=== PATIENT | female | born 1935 | race Caucasian/White ===

== ENCOUNTER 2018-03-28 08:27 | Outpatient (CLI) | payer MEDICARE ==
--- NOTE | 2018-03-28 15:54 | NM ---
NUCLEAR MEDICINE BRAIN IMAGING: Date: 03/28/18 HISTORY: Other specified forms of tremor. TECHNIQUE: A DaTscan with axial tomographic images of the brain was obtained 3 hours following the intravenous a dministration of 4.6 mCi Iodine-123 Ioflupane. The patient was pretreated with 130 mg of potassium io dide 1 hour prior to the injection. FINDINGS: There is loss of symmetric uptake in the striata bilaterally. IMPRESSION: Parkinsonian syndrome. POS: [facility]
== END 2018-03-28 08:28 | disposition home or self-care (01) ==
LOC: NM 08:27
PROVIDERS: ATTEND Psychiatry & Neurology Neurology
DX: G25.2 Other specified forms of tremor (principal); G20 Parkinson's disease
CPT/HCPCS: 78607; A9584

== ENCOUNTER 2018-06-11 13:51 | Outpatient (CLI) | payer MEDICARE ==
--- NOTE | 2018-06-11 15:03 | CT ---
CT HEAD WITHOUT CONTRAST: HISTORY: Follow up subdural hematoma. The patient fell in April. COMPARISON: None. FINDINGS: No parenchymal hemorrhage or extraaxial hematoma. No midline shift. Basilar cisterns are patent. A ge appropriate atrophy. Cortical bauer white matter differentiation is preserved. No evidence of hydrocephalus. White matter hypodensities due to chronic small vessel ischemic change. The calvarium is intact. Adequate aeration of the sinuses and mastoid air cells. There is cavernous carotid atherosclerosis. There is an increased density along the posterior right nasal cavity. The possibility of a nasal mas s cannot be excluded. Direct visualization is recommended. IMPRESSION: 1. No evidence of intracranial hemorrhage. 2. Possible mass in the posterior right nasal cavity. Direct visualization is recommended. CODE T POS: [facility]
== END 2018-06-11 13:52 | disposition home or self-care (01) ==
LOC: TBSIIMAG 13:51
PROVIDERS: ATTEND Neurological Surgery
DX: S06.5X9A Traumatic subdural hemorrhage with loss of consciousness of unspecified duration, initial encounter (principal)
CPT/HCPCS: 70450

== ENCOUNTER 2019-02-17 15:45 | Inpatient (IN) | payer MEDICARE ==
--- NOTE | 2019-02-17 16:22 | RAD ---
Frontal radiograph chest: 02/17/2019 COMPARISON: None available HISTORY: Syncope FINDINGS: There is prominence of the left hilum which suggest vascular prominence, likely on the basi s of a dilated pulmonary arterial trunk suggestive of pulmonary arterial hypertension. There is mild increased linear interstitial density. No focal consolidation or alveolar edema. Loop recorder o verlies the left lung base. IMPRESSION: Prominent pulmonary arterial trunk. No focal consolidation or alveolar edema.
[2019-02-17 16:35] LABS: #Eosinphils 0.2 thou/uL (0.0-0.7); #Lymphocytes 0.9 thou/uL (1.20-3.40); #Monocytes 0.7 thou/uL (0.11-0.59); #Neutrophils 10.6 thou/uL (1.40-6.50); %Basophils 0.2 % (0.0-1.0); %Eosinophils 1.6 % (0.0-10.0); %Lymphocytes 7.3 % (21.0-51.0); %Monocytes 5.2 % (0.0-10.0); %Neutrophils 85.7 % (42.0-75.0); Hemoglobin 8.5 g/dL (12.0-16.0); Mean Corpuscular HGB CONC 33.8 g/dL (32.0-36.0); Mean Corpuscular Hemoglobin 32.6 pg (27.0-31.0); Mean Corpuscular Volume 96.5 fL (78.0-98.0); Platelet Count 318 thou/uL (130-400); RBC Distribution Width 13.5 % (11.5-14.5); Red Blood Cell (RBC) Count 2.61 mill/uL (4.20-5.40); White Blood Cell (WBC) Count 12.3 thou/uL (4.8-10.8)
[2019-02-17 17:23] LABS: ALT (SGPT) Less than 7 U/L (8-55); AST (SGOT) 13 U/L (5-34); Albumin 3.2 g/dL (3.4-4.8); Alkaline Phosphatase 93 U/L (40-110); Anion Gap 9 mmol/L (10-20); BUN (Urea Nitrogen) 21 mg/dL (9.8-20.1); Bilirubin, Total 1.8 mg/dL (0.2-1.2); Calc. Creatinine Clearance 0 mL/min (70-130); Calcium 8.8 mg/dL (7.8-10.44); Carbon Dioxide 28 mmol/L (23-31); Chloride 93 mmol/L (98-107); Estimated GFR-MDRD 66; Globulin 2.2 g/dL (2.4-3.5); Glucose 110 mg/dL (83-110); Magnesium 1.9 mg/dL (1.6-2.6); Potassium 4.7 mmol/L (3.5-5.1); Protein, Total 5.4 g/dL (6.0-8.3); Sodium 125 mmol/L (136-145)
[2019-02-17 19:28] LABS: Bilirubin Negative (Negative); Blood, Urine Negative (Negative); Clarity Clear (Clear); Glucose, Urine (Dipstick) Normal (Negative); Leukocyte Negative Leu/uL (Negative); Nitrite Negative (Negative); Protein, Urine (Dipstick) 10 mg/dL (Neg-Trace)
--- NOTE | 2019-02-17 19:30 | CT ---
CT HEAD WITHOUT CONTRAST: HISTORY: Altered mental status. COMPARISON: 06/11/2018 FINDINGS: Again noted is decreased attenuation in the periventricular white matter, which is nonspecific but ag ain likely reflective of chronic small vessel ischemic changes. There is no evidence of an acute taina ical infarction, hemorrhage, mass effect or midline shift. Subtle low density areas are seen in the p ons bilaterally, which could be reflective of chronic small vessel ischemic changes. MRI would be a m ore sensitive study of choice to evaluate for a more acute lacunar infarction in the florentin. There is cerebral and cerebellar volume loss again noted. Again noted is the low density mass like structures with associated increased density seen within the posterior right nasal cavity and extending into the right nasopharynx. This was also present on the prior exam. Prominent vascular calcifications are seen in the carotid siphons and involving the distal vertebral arteries. No other interval change. IMPRESSION: 1. Chronic small vessel ischemic changes and cerebral volume loss. There are low density areas seen w ithin the florentin bilaterally which could be related to chronic small vessel ischemic changes as well. H owever, a more acute lacunar infarction would be difficult to exclude based on this examination. MRI would be a more sensitive study of choice. No acute cortical infarction or hemorrhage is seen. 2. As described on the study of 06/11/2018, there is suggestion of a mass in the posterior right nasa l cavity and extending into the nasopharynx. Again direct visualization is recommended if this has no t been performed. POS: OFF
--- NOTE | 2019-02-17 19:50 | CT ---
CT ANGIOGRAM THORAX WITH IV CONTRAST AND 3D RECONSTRUCTIONS: HISTORY: Syncopal episode. COMPARISON: None. FINDINGS: The main pulmonary artery and the proximal aspect of the left main pulmonary artery are enlarged. The main pulmonary artery measures 5.7 cm in diameter. The right pulmonary artery is not enlarged, and t he remainder of the left pulmonary artery is not enlarged. There are no filling defects seen to sugge st a pulmonary embolus involving the central or segmental pulmonary arteries but there is limited opa cification of the subsegmental pulmonary arteries. Dense and significant vascular calcifications are seen in the coronary arteries as well as involving the thoracic aorta. The thoracic aorta is normal in caliber, and no aortic dissection is visualized. Small bilateral pleural effusions and associated atelectasis are present. There are linear areas of scarring scattered within the lungs bilaterally. Calcified mediastinal lymph nodes are seen related to prior granulomatous disease. Gallbladder calculi are visualized. The remainder of the visualized upper abdomen does have a normal CT appearance. There is osteopenia with multilevel degenerative changes seen throughout the spine. IMPRESSION: 1. 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 The dilatation extends into t he proximal left main pulmonary artery, but the remainder of the left pulmonary artery as well as the right pulmonary artery are more normal in caliber. 2. No CT evidence of a pulmonary embolus involving the central or segmental pulmonary arteries. There is limited evaluation of the subsegmental pulmonary arteries. 3. Significant vascular calcifications. 4. Small bilateral pleural effusions. 5. Cholelithiasis. POS: OFF
[2019-02-17] MEDS ORDERED: Aspirin Chewable 81 MG TAB ONE (20:22)
[2019-02-17 21:05] LABS: Troponin I Less than 0.010 ng/mL (< 0.028)
[2019-02-18 00:07] LABS: Troponin I 0.015 ng/mL (< 0.028)
--- NOTE | 2019-02-18 03:58 | HP ---
CHIEF COMPLAINT: Syncope. HISTORY OF PRESENT ILLNESS: The patient is an 83-year-old female, who recently had right hip replaced at the [facility] and was transferred to a [place] for rehabilitation. The patient's daughter, who is at the bedside stated that the patient presents today for a syncopal episode. The patient's daughter also states that while she was at the [facility] given her irregularity of her heart rate, she underwent a Holter monitor placed, which was done by Dr. Henry. She also was noted to have hyponatremia and at this time, she was found to be on hydrochlorothiazide, so her primary care doctor discontinued the hydrochlorothiazide and has been keeping an eye on her hyponatremia. The patient also has a history of Parkinson disease and due to her unsteady gait and her recent hip surgery, she was admitted to the [place] [facility] for further evaluation. The patient's daughter, who is at the bedside stated that today the patient was sitting in therapy today at the facility, where she had a sync[facility] episode at [facility]. At this time, she was found to have her eyes rolled back and also had some shortness of breath. The patient's heart monitor was checked by the customer engagement representative, who stated that there was no abnormalities noted, however, recommended to follow up or bring her into the ER for further evaluation. PAST MEDICAL HISTORY: She has a history of CAD. She has a history of hypertension. She has a history of Parkinson's. She has a history of hyperlipidemia. PAST SURGICAL HISTORY: She has right hip replacement. She has had left knee pin inserted. She has cardiac stent. She also has carotid endarterectomy, I am unaware if it is on the right or the left or both. The daughter could not remember. She has also had some sort of bleeding in her brain in the past. ALLERGIES: NO KNOWN DRUG ALLERGIES. MEDICATIONS: She is on: 1. Carbidopa levodopa one tab three times a day. 2. She is on clopidogrel 75 mg daily. 3. Doxazosin 4 mg daily. 4. She is on aspirin 325 daily. 5. Metoprolol 25 mg at bedtime. 6. Atorvastatin 20 mg at bedtime. 7. Amantadine 100 mg twice a day. 8. Potassium 20 mEq daily. REVIEW OF SYSTEMS: All negative except for the ones mentioned above in the HPI. FAMILY HISTORY: No history of heart disease or stroke. SOCIAL HISTORY: She denies any alcohol use, drug use, or smoking history. She is a full code. She lives with her daughter, but currently is in the [place]. LABORATORY DATA: Laboratory results are as of the following. She did have CTA and CT brain. CTA did not indicate any pulmonary embolism, just indicated aneurysmal dilation in the main pulmonary artery about 5.7 cm. No evidence of thrombus was noted. Also, she had a CT brain, which indicated chronic small-vessel ischemia. There is a low-density area seen within the florentin bilaterally, which could be related to the chronic small-vessel ischemic changes as well or more lacunar infarcts would be difficult to exclude. Also, there was a mention that she does have mass in the posterior right nasal cavity and extending into the nasopharyngeal. Laboratory results are as of the following; WBCs of 12.3, hemoglobin of 8.5, hematocrit of 25.2, platelets of 318. Chemistry; sodium 125, potassium of 4.7, BUN of 21, creatinine 0.82. Her osmolality is 274. Her total bilirubin was 1.8. Troponins x2 were negative. BNP is normal. TSH is normal. ASSESSMENT AND PLAN: The patient is an 83-year-old female, who presents to the hospital with syncopal episode. 1. Syncope. It could be possible vasovagal versus multifactorial in terms of cardiac versus infectious etiology. The patient's daughter who is at the bedside states that she has had multiple urinary tract infections in the past. However, her urine this time was negative. Also, the patient's daughter stated that over the weekend, she has been sleeping quite a bit. With this, CT head findings possibly could be that she had a stroke, however, it is unclear. We will get an MRI of the brain in the morning. The patient does have a Holter monitor given her abnormalities in her EKG while she was in the hospital at the [facility]. The morning doctor will have to probably call Dr. Henry to see if there is any abnormalities that was noted on the Holter monitor. However, per the ER note, it stated that there was no abnormality that was noted. Her syncope could possibly also be related secondary to even hypotension. However, her blood pressure has been stable. According to the patient's daughter, she has not been eating very much. 2. Hyponatremia, unclear etiology. She initially was on hydrochlorothiazide which has been discontinued. She continues to be hyponatremic. We will check urine osmolality and urine sodium. We will continue to monitor. TSH appears to be normal. This could be most likely secondary to low solute, hyponatremia, however, other etiologies is also possible. She is not on any SSRIs that could cause her to have hyponatremia. 3. Hypertension. I will continue her home medications. 4. Coronary artery disease. We will continue her aspirin and her Plavix and statin. 5. Right hip fracture recently, status post replacement. I will get PT and OT involved in this patient's care and also, we will start her on some deep venous thrombosis prophylaxis with Lovenox. 6. 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 According to the patient's daughter, she had this investigated in 2016 and she was given the option for removal, however, she declined it. I will get an MRI brain. We will consult Neurology. We will also get an echocardiogram and we will also get carotid Dopplers since according to the patient's daughter, her customer engagement representative has been keeping a close eye on her carotid. She has had stents or some sort of carotid surgery in the past. Job ID: [id number]
[2019-02-18 04:36] LABS: Cardiac Risk 3.9 (Less than 4.5)
--- NOTE | 2019-02-18 08:39 | ULT ---
CAROTID ULTRASOUND WITH ADAME SCALE AND DOPPLER DUPLEX COLOR FLOW IMAGING SPECTRAL ANALYSIS PERFORMED: DATE: 02/18/19 CLINICAL INDICATION: Stroke. FINDINGS: There is moderate to severe scattered atherosclerotic calcification of the carotid arteries. PEAK SYSTOLIC VELOCITY (CM/S): Right CCA 80 Left CCA 73 Right ICA 93 Left ICA 214 The left vertebral flow-void is not discerned. Antegrade flow is documented within the right vertebra l artery. IMPRESSION: 1. Moderate (50-69%) stenosis of the left ICA. 2. No hemodynamically significant stenosis of the right internal carotid artery. 3. Indeterminate flow direction of the left vertebral artery, which is not visualized on this exam. POS: [facility]
[2019-02-18] MEDS ORDERED: Aspirin 81 mg Enteric Coated Tablet PO SCH (09:00)
[2019-02-18] MEDS ORDERED: Clopidogrel Bisulfate 75 MG TAB ONE (09:17)
[2019-02-18] MEDS ORDERED: Aspirin Chewable 81 MG TAB ONE (09:17)
[2019-02-18] MEDS: Clopidogrel Bisulfate 75 MG TAB PO SCH (09:21)
--- NOTE | 2019-02-18 10:09 | MRI ---
Brain MRI without contrast: 02/18/2019 COMPARISON: None HISTORY: Generalized weakness, assess for acute infarction TECHNIQUE: Multiplanar multisequence MR imaging of the brain obtained without contrast FINDINGS: There is a definite focus of acute infarction within the deep white matter on the right ant eriorly measuring 6 mm. There are a few additional foci of increased signal intensity on the diffusion weighted imaging within the deep white matter on the left. This includes a focus of increas ed signal intensity measuring 4 mm on axial image 44. This may represent an additional small area of acute infarction or could potentially represent T2 shine through on the basis of chronic small ves elza disease. There is a similar vague area of increased signal intensity within the superior aspect of the deep white matter on the left on axial diffusion image 47 measuring 3 mm. No evidence for acute infarction is seen involving the brainstem or the cerebellum. The axial gradien t echo imaging demonstrates no evidence for intracranial hemorrhage. There is extensive periventricular, deep, and subcortical white matter T2 and FLAIR hyperintensity, c onsistent with significant small vessel disease. There is significant diffuse cerebral volume loss as well. Regional bone marrow signal intensity appears within normal limits. The imaged paranasal sinuses/mastoid air cells appear grossly unremarkable. Arterial flow voids at th e axial level of the skull base appear grossly unremarkable on the T2-weighted imaging. IMPRESSION: Definite focus of acute infarction within the deep white matter on the right. Additional foci of increased signal intensity on the diffusion weighted sequence on the left as described above.
[2019-02-18 12:42] LABS: Anion Gap 13 mmol/L (10-20); BUN (Urea Nitrogen) 24 mg/dL (9.8-20.1); Calc. Creatinine Clearance 0 mL/min (70-130); Calcium 8.6 mg/dL (7.8-10.44); Carbon Dioxide 25 mmol/L (23-31); Chloride 96 mmol/L (98-107); Estimated GFR-MDRD 64; Glucose 113 mg/dL (83-110); Potassium 4.3 mmol/L (3.5-5.1); Sodium 130 mmol/L (136-145)
[2019-02-18 16:45] VITALS: BMI 30.1
[2019-02-18] MEDS: Atorvastatin Calcium 20 MG TAB PO SCH (20:32)
[2019-02-18] MEDS ORDERED: Atorvastatin Calcium 40 MG TAB PO SCH (21:00)
[2019-02-19 04:32] LABS: #Eosinphils 0.2 thou/uL (0.0-0.7); #Lymphocytes 1.2 thou/uL (1.20-3.40); #Monocytes 0.7 thou/uL (0.11-0.59); %Basophils 0.5 % (0.0-1.0); %Eosinophils 1.6 % (0.0-10.0); %Monocytes 7.2 % (0.0-10.0); %Neutrophils 78.8 % (42.0-75.0); Hemoglobin 7.7 g/dL (12.0-16.0); Mean Corpuscular HGB CONC 34.3 g/dL (32.0-36.0); Mean Corpuscular Hemoglobin 33.2 pg (27.0-31.0); Mean Corpuscular Volume 96.8 fL (78.0-98.0); Platelet Count 315 thou/uL (130-400); RBC Distribution Width 13.8 % (11.5-14.5); Red Blood Cell (RBC) Count 2.32 mill/uL (4.20-5.40); White Blood Cell (WBC) Count 10.1 thou/uL (4.8-10.8)
[2019-02-19 04:46] LABS: Anion Gap 8 mmol/L (10-20); BUN (Urea Nitrogen) 14 mg/dL (9.8-20.1); Calc. Creatinine Clearance 82 mL/min (70-130); Calcium 8.6 mg/dL (7.8-10.44); Carbon Dioxide 30 mmol/L (23-31); Chloride 96 mmol/L (98-107); Estimated GFR-MDRD 87; Glucose 106 mg/dL (83-110); Sodium 130 mmol/L (136-145)
[2019-02-19] MEDS ORDERED: hydrALAZINE 20 MG/ML VIAL SLOW IVP PRN (04:51)
[2019-02-19] MEDS ORDERED: Clopidogrel Bisulfate 75 MG TAB PO SCH (09:00)
[2019-02-19] MEDS: Aspirin 81 mg Enteric Coated Tablet PO SCH (09:08)
[2019-02-19] MEDS: Clopidogrel Bisulfate 75 MG TAB PO SCH (09:08)
--- NOTE | 2019-02-19 11:28 | PDOC.HOSPP ---
- Subjective Encounter Date: 02/19/19 Encounter Time: 11:28 Subjective: Doing well, wishes to go back to her rehab when sodium imroves. - Objective Vital Signs & Weight: Vital Signs (12 hours) Temp Pulse Resp BP BP Pulse Ox 02/19/19 09:08 192/88 H 02/19/19 07:50 96 02/19/19 07:44 98.0 F 95 18 192/88 H 96 02/19/19 04:00 97.9 F 91 20 190/78 H 92 L 02/19/19 00:00 99.1 F 86 16 157/72 H 93 L Weight Weight 181 lb 3.2 oz I&O: 02/18/19 02/19/19 02/20/19 06:59 06:59 06:59 Intake Total 460 300 Output Total 200 Balance 260 300 Result Diagrams: 02/19/19 04:18 02/19/19 04:18 Hospitalist ROS - Medication Medications: Active Medications Generic Name Dose Route Start Last Admin Trade Name Freq PRN Reason Stop Dose Admin Aspirin 81 mg 02/19/19 09:00 02/19/19 09:08 Ecotrin PO 81 mg DAILY MONSE Administration Atorvastatin Calcium 20 mg 02/18/19 21:00 02/18/19 20:32 Lipitor PO 20 mg HS MONSE Administration Clopidogrel Bisulfate 75 mg 02/18/19 09:00 02/19/19 09:08 Plavix PO 75 mg DAILY MONSE Administration Enalapril Maleate 20 mg 02/19/19 09:00 02/19/19 09:08 Vasotec PO 20 mg DAILY MONSE Administration Metoprolol Succinate 25 mg 02/19/19 09:00 02/19/19 09:08 Toprol Xl PO 25 mg DAILY MONSE Administration - Exam General Appearance: NAD, awake alert, ill appearing Eye: PERRL, anicteric sclera, scleral icterus ENT: normocephalic atraumatic, no oropharyngeal lesions, moist mucosa, dry oral mucosa Neck: supple, symmetric, no JVD, no thyromegaly, no lymphadenopathy, no carotid bruit, JVD Heart: RRR, no murmur, no gallops, no rubs, normal peripheral pulses, irregular , diminshed peripheral pulses, murmur present, II/IV, III/IV Respiratory: CTAB, no wheezes, no rales, no ronchi, normal chest expansion, no tachypnea, normal percussion, rales, rhonchi, tachypneic, wheezes Gastrointestinal: soft, non-tender, non-distended, normal bowel sounds, no palpable masses, no hepatomegaly, no splenomegaly, no bruit, no guarding, no rigidity, tender to palpation, distended, diminished bowl sounds, voluntary guarding Extremities: no cyanosis, no clubbing, no edema, 1+ LE edema, 2+ LE edema, clubbing Skin: normal turgor, no lesions, no rashes, tenting Hosp A/P (1) CVA (cerebral vascular accident) Code(s): I63.9 - CEREBRAL INFARCTION, UNSPECIFIED Status: Acute (2) Hyponatremia Code(s): E87.1 - HYPO-OSMOLALITY AND HYPONATREMIA Status: Acute - Plan plan discussed w/ family, PT/OT, social media executive, DVT proph w/lovenox (D/c planning to Rehab when the PT and neurologist clears and sodium imroves.)
[2019-02-19 11:53] LABS: #Eosinphils 0.1 thou/uL (0.0-0.7); #Lymphocytes 1.2 thou/uL (1.20-3.40); #Monocytes 0.6 thou/uL (0.11-0.59); #Neutrophils 8.8 thou/uL (1.40-6.50); %Basophils 0.2 % (0.0-1.0); %Eosinophils 1.3 % (0.0-10.0); %Lymphocytes 11.2 % (21.0-51.0); %Monocytes 5.9 % (0.0-10.0); %Neutrophils 81.4 % (42.0-75.0); Hemoglobin 7.6 g/dL (12.0-16.0); Mean Corpuscular HGB CONC 32.9 g/dL (32.0-36.0); Mean Corpuscular Volume 97.3 fL (78.0-98.0); Mean Platelet Volume 5.9 fL (7.4-10.4); Platelet Count 306 thou/uL (130-400); RBC Distribution Width 13.8 % (11.5-14.5); Red Blood Cell (RBC) Count 2.37 mill/uL (4.20-5.40); White Blood Cell (WBC) Count 10.8 thou/uL (4.8-10.8)
[2019-02-19 12:11] LABS: Anion Gap 11 mmol/L (10-20); BUN (Urea Nitrogen) 14 mg/dL (9.8-20.1); Calc. Creatinine Clearance 85 mL/min (70-130); Calcium 8.4 mg/dL (7.8-10.44); Carbon Dioxide 28 mmol/L (23-31); Chloride 95 mmol/L (98-107); Estimated GFR-MDRD 90; Glucose 101 mg/dL (83-110); Potassium 3.7 mmol/L (3.5-5.1); Sodium 130 mmol/L (136-145)
--- NOTE | 2019-02-19 12:51 | CON ---
DATE OF TELEMEDICINE CONSULTATION: 02/19/2019 CHIEF COMPLAINT: Acute stroke. HISTORY OF PRESENT ILLNESS: The patient was at the intermediate facility on February 17, physical therapist was getting her up from the wheelchair into a walker and her eyes rolled and she passed out and then responded. The event lasted about 10 minutes and she remained confused for another 10 minutes, history was given by her daughter. The patient also has Parkinson disease and low sodium, therefore, has had intermittent confusion. She had hip surgery on February 08 and daughter feels she has not fully recovered from the anesthesia. The patient is on a radiation monitor and Dr. Henry's office told the daughter they did not see any arrhythmias during the event. Her blood pressure was normal per daughter, but it was checked when she was sitting, she has fallen before. Daughter is not sure if she passed out. PREVIOUS MEDICAL HISTORY: Parkinson disease, pulmonary stenosis, hypercholesterolemia, coronary artery disease. She did have a fall and bleeding in the brain in the past PREVIOUS SURGICAL HISTORY: The patient had a stent in the left carotid artery and she also had a coronary artery stent placed. She had right hip replacement recently and left knee pin insertion. ALLERGIES: NO KNOWN DRUG ALLERGIES. MEDICATIONS: At home, she takes carbidopa/levodopa, clopidogrel, doxazosin, aspirin, metoprolol, atorvastatin, amantadine, potassium. FAMILY HISTORY: The patient's parents in their early 80s. Father had a stroke. Mother had an NV. The patient had a sister who passed at 82 years of age from Parkinson disease. Brother is 80, has hypercholesterolemia and hypertension. The patient's son at 41 from an NV. Other children are in their 50s. One daughter is in her 60s, all are healthy and a 51-year-old son has hypertension and is on medication. REVIEW OF SYSTEMS: PULMONARY: Negative for cough or shortness of breath. CARDIAC: Negative for palpitations or chest pain. NEUROLOGIC: Positive for passing out episode and confusion. ORTHOPEDIC: Positive for hip fracture with repair recently and knee problems with surgery in the past. OPHTHALMOLOGIC: Negative for eye problems or vision problems. DERMATOLOGIC: Negative for any skin problems. HEMATOLOGIC: Negative for bleeding diathesis or anemia. LABORATORY DATA: White count 10.8, hemoglobin 7.6, hematocrit 23.1, platelet count 306. Sodium 130, potassium 4, chloride 96, bicarbonate 30, BUN 14, creatinine 0.65, and lipid profile is within normal limits. Urinalysis is negative. Her MRI of the brain was completed, she had deep white matter ischemia in the right side and specific area was not mentioned and the area is 6 mm and she also has few additional foci of increased signal intensity on diffusion weighted imaging in the deep white matter on the left and suspecting another infarct left side as well that is 4 mm. Echocardiogram is pending and CT angiogram of the brain and head and neck has not been completed. Carotid Doppler was completed and it shows moderate stenosis of the left ICA. No hemodynamically significant stenosis of the right carotid artery. PHYSICAL EXAMINATION: GENERAL APPEARANCE: Well-built, well-nourished lady, who is comfortable in the bed. CHEST: Clear vesicular breathing. CARDIOVASCULAR: S1 and S2 heard. No murmurs. ABDOMEN: Soft. NEUROLOGIC: The patient has higher intellectual function. Normal orientation to time and person, but not the place. Appropriate conversation and cranial nerves , normal extraocular movements and no facial asymmetry noted. Tongue midline. No atrophy noted. Normal hearing to finger rub bilaterally and normal elevation of palate. Motor examination; bulk normal, tone normal, strength 5/5 throughout in upper and lower extremities in iliopsoas, hamstrings, quadriceps, ankle dorsiflexion, plantar flexion, deltoid, biceps, triceps, wrist extension and flexion, finger extension and flexion bilaterally. Deep tendon reflexes 2+ throughout. She did have mild weakness in the left upper extremity extensors. Involuntary movements; she had rest tremor in the left upper extremity, action tremor in the right upper extremity. Cerebellar; normal [id number]. She was unable to perform [id number] and sensory was normal to touch bilaterally. IMPRESSION: The patient is an 83-year-old lady, who had a recent hip surgery and passed out when she was getting up from wheelchair to walker with help from PT. Episode lasted 10 minutes and she had confusion for another 10 minutes. She has Parkinson disease and prior history of carotid artery disease and left carotid stent and bleeding in the brain as well. At baseline, she might have mild dementia, which has not been evaluated. At this time, she is also at risk for seizures due to presence of Parkinson disease, which is neurodegenerative in nature. Her current examination is normal except for mild weakness of the left extensors could be due to old fracture per daughter. I am not sure whether these strokes are related to carotid artery disease or cardiac issues. She is pending an echocardiogram at this time. TREATMENT/RECOMMENDATIONS: 1. Please discuss with cardiology whether the patient needs to be on anticoagulants due to high risk for stroke. 2. I will request a CT angiogram to verify the degree of stenosis of the ICA mentioned and I will also follow up the patient with you tomorrow. Job ID: [id number] [id number]
--- NOTE | 2019-02-19 13:57 | CT ---
CTA HEAD WITH AND WITHOUT CONTRAST: INDICATION: Stroke. COMPARISON: None. CORRELATION: Carotid ultrasound 02/18/2019. Brain MRI 02/18/2019. FINDINGS: CT BRAIN: Hemorrhage: None Ischemia/Infarction: White matter hypodensities corresponding to recent restricted diffusion are not ed. Additional white matter hypodensities due to chronic small vessel ischemic changes are identified Midline Shift: None. Hydrocephalus: None. Skull and Extracranial Soft tissues: Normal. CTA BRAIN: Right ICA: Atherosclerosis without luminal narrowing in the cavernous and paraclinoid segments. Right MCA: Patent. Right RENETTA: Patent. ACOM: Patent. Left ICA: Atherosclerosis without luminal narrowing in the cavernous and paraclinoid segments. Left MCA: Patent. Left RENETTA: Patent. 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 Vertebral arteries: Right vertebral artery is dominant. 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 Right vertebral artery is the major supplying vessel to the basilar artery. Basilar Artery: Patent. machine feeder raw stock: Right FIRE ALARM DISPATCHER has a origin. Incidentals: None. CTA NECK: Right CCA: Atherosclerosis with long segment mild to moderate narrowing due to a combination of calc ified and noncalcified plaque in the mid common carotid artery. Right ICA: There is a stent in the right carotid bifurcation and proximal right internal carotid art fanny. There appears be appropriate enhancement and luminal diameter. Right Subclavian: Atherosclerosis. No significant luminal narrowing. Right Vertebral Artery: Patent. Left CCA: Minimal atherosclerosis. Left ICA: Calcified plaque without luminal narrowing involving the left carotid bifurcation. Short s egment severe stenosis involving the proximal left internal carotid artery, based upon NASCET criteria. Short segment stenosis is just beyond the calcified plaque. Left Subclavian: Patent. Left Vertebral Artery: Patent. Aerodigestive tract: Abnormal soft tissue attenuation in the posterior right nasopharynx suggesting a 1.9 x 3.1 fungating mass. Parotids/Submandibular/Thyroid glands: Normal. Lymph nodes: No pathologically enlarged lymph nodes. Lung Apices: Mild emphysematous changes. Pulmonary artery: The central pulmonary artery is prominent measuring 5.1 cm Bones: No acute osseous abnormality. Incidentals: None. IMPRESSION: 1. Stent in the right carotid bifurcation and proximal right internal carotid artery. No significant stenosis. 2. Short segment severe stenosis involving the proximal left internal carotid artery just beyond calc ified plaque at the left carotid bifurcation. High grade stenosis based upon NASCET criteria. 3. Pulmonary artery hypertension is suspected given the enlarged central pulmonary artery. 4. Abnormal fungating soft tissue mass in the posterior right nasopharynx. Direct visualization is re commended CODE T Transcribed Date/Time: 02/19/2019 2:46 PM
[2019-02-19] MEDS ORDERED: Ondansetron PF 4 MG/2 ML Vial IVP PRN (14:31)
[2019-02-19] MEDS ORDERED: Ondansetron ODT 4 MG TAB PO PRN (14:31)
[2019-02-19] MEDS: Atorvastatin Calcium 20 MG TAB PO SCH (22:11)
[2019-02-20 06:34] LABS: #Basophils 0.1 thou/uL (0.0-0.2); #Eosinphils 0.2 thou/uL (0.0-0.7); #Monocytes 0.6 thou/uL (0.11-0.59); #Neutrophils 7.1 thou/uL (1.40-6.50); %Basophils 0.7 % (0.0-1.0); %Eosinophils 2.2 % (0.0-10.0); %Lymphocytes 10.9 % (21.0-51.0); %Monocytes 6.2 % (0.0-10.0); Hemoglobin 7.6 g/dL (12.0-16.0); Mean Corpuscular HGB CONC 32.7 g/dL (32.0-36.0); Mean Corpuscular Hemoglobin 32.1 pg (27.0-31.0); Mean Corpuscular Volume 98.3 fL (78.0-98.0); Mean Platelet Volume 6.1 fL (7.4-10.4); Platelet Count 338 thou/uL (130-400); RBC Distribution Width 14.1 % (11.5-14.5); Red Blood Cell (RBC) Count 2.38 mill/uL (4.20-5.40); White Blood Cell (WBC) Count 8.9 thou/uL (4.8-10.8)
[2019-02-20 06:54] LABS: Anion Gap 9 mmol/L (10-20); BUN (Urea Nitrogen) 10 mg/dL (9.8-20.1); Calc. Creatinine Clearance 82 mL/min (70-130); Calcium 8.6 mg/dL (7.8-10.44); Carbon Dioxide 29 mmol/L (23-31); Chloride 94 mmol/L (98-107); Estimated GFR-MDRD 87; Glucose 106 mg/dL (83-110); Potassium 3.6 mmol/L (3.5-5.1); Sodium 128 mmol/L (136-145)
[2019-02-20] MEDS: Clopidogrel Bisulfate 75 MG TAB PO SCH (09:34)
[2019-02-20] MEDS: Aspirin 81 mg Enteric Coated Tablet PO SCH (09:34)
--- NOTE | 2019-02-20 10:35 | PDOC.EVN ---
Event Note - Event Note Event Note: OFFERED ANTICOAGULATION, ICT SUPPORT TECHNICIANS anti coagulation. The patient and the daughter refused due to be on intermediate anti coagulation due to risk of bleeding. Offered cardilogy consult, the patient refused.Jose Antonio and susan discussed at length.
--- NOTE | 2019-02-20 11:25 | PRG ---
DATE OF SERVICE: 02/20/2019 This is a followup note via Telemedicine. CHIEF COMPLAINT: Recent episode of passing out. INTERVAL HISTORY: The patient is doing well today. She is sitting up. She has pending orthostatic blood pressure measurements as of now. She is also pending physical therapy, at this time, per her admitting physician, the patient's family has refused anticoagulants because of presence of fall risk due to Parkinson and she is at a nursing facility. Her interval lab test results; white count 8.9, hemoglobin 7.6, hematocrit 23.4, and platelet count 338. Sodium 128, potassium 3.6, chloride 94, bicarb 29, BUN 10, creatinine 0.65, and her other reports, she completed her echocardiogram and EF is at 55% to 60%. She has mild left atrial dilatation and mild tricuspid regurgitation. PHYSICAL EXAMINATION: VITAL SIGNS: Blood pressure 148/63, temperature 98.2, pulse 79, and O2 saturations 94%, respiratory rate is 16. NEUROLOGIC: On examination, higher intellectual functions normal. Cranial nerves, normal extraocular movements. No facial asymmetry. Normal hearing. Normal elevation of palate. Motor examination, bulk normal and tone normal. Strength 5/5. She did have upper extremity action tremor secondary to Parkinson. IMPRESSION: The patient with Parkinson disease and recent syncopal event. She is being discharged home per Dr. Ya, who discussed this with the patient's family, refused anticoagulation due to risk of bleeding and Cardiology consult was also refused per his note. At this time, please have the patient follow up with Dr. Hammond as an outpatient. Job ID: [id number]
[2019-02-20 12:18] VITALS: TEMP 98.9
[2019-02-20 15:14] VITALS: BP 140/61
--- NOTE | 2019-02-21 06:52 | DIS ---
DATE OF ADMISSION: 02/18/2019 DATE OF DISCHARGE: 02/20/2019 ADMITTING DIAGNOSIS: Syncope and collapse. FINAL DIAGNOSES: 1. Pontine lacunar infarct, MRI confirmed. 2. Hyponatremia. HOSPITAL COURSE: The patient was admitted. The sodium has been corrected. The patient's condition started improving slowly. Patient was added on salt in the diet. Physical therapy, occupational therapy was continued. As the patient's condition continued to improve, it has been concluded to transfer the patient to correction facility. DISCHARGE INSTRUCTIONS: Discharge the patient to correction facility. FOLLOWUP CARE: Follow up with PCP as scheduled. DISCHARGE MEDICATIONS: As per reconciliation sheet. DIET: Regular. ACTIVITY: As per physical therapy. Job ID: [id number]
--- NOTE | 2019-02-21 15:23 | CT ---
CTA HEAD WITH AND WITHOUT CONTRAST: INDICATION: Stroke. COMPARISON: None. CORRELATION: Carotid ultrasound 02/18/2019. Brain MRI 02/18/2019. FINDINGS: CT BRAIN: Hemorrhage: None Ischemia/Infarction: White matter hypodensities corresponding to recent restricted diffusion are not ed. Additional white matter hypodensities due to chronic small vessel ischemic changes are identified Midline Shift: None. Hydrocephalus: None. Skull and Extracranial Soft tissues: Normal. CTA BRAIN: Right ICA: Atherosclerosis without luminal narrowing in the cavernous and paraclinoid segments. Right MCA: Patent. Right RENETTA: Patent. ACOM: Patent. Left ICA: Atherosclerosis without luminal narrowing in the cavernous and paraclinoid segments. Left MCA: Patent. Left RENETTA: Patent. 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 Vertebral arteries: Right vertebral artery is dominant. 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 Right vertebral artery is the major supplying vessel to the basilar artery. Basilar Artery: Patent. awake overnight monitor: Right UNDERTAKER HELPER has a origin. Incidentals: None. CTA NECK: Right CCA: Atherosclerosis with long segment mild to moderate narrowing due to a combination of calc ified and noncalcified plaque in the mid common carotid artery. Right ICA: There is a stent in the right carotid bifurcation and proximal right internal carotid art fanny. There appears be appropriate enhancement and luminal diameter. Right Subclavian: Atherosclerosis. No significant luminal narrowing. Right Vertebral Artery: Patent. Left CCA: Minimal atherosclerosis. Left ICA: Calcified plaque without luminal narrowing involving the left carotid bifurcation. Short s egment severe stenosis involving the proximal left internal carotid artery, based upon NASCET criteria. Short segment stenosis is just beyond the calcified plaque. Left Subclavian: Patent. Left Vertebral Artery: Patent. Aerodigestive tract: Abnormal soft tissue attenuation in the posterior right nasopharynx suggesting a 1.9 x 3.1 fungating mass. Parotids/Submandibular/Thyroid glands: Normal. Lymph nodes: No pathologically enlarged lymph nodes. Lung Apices: Mild emphysematous changes. Pulmonary artery: The central pulmonary artery is prominent measuring 5.1 cm Bones: No acute osseous abnormality. Incidentals: None. IMPRESSION: 1. Stent in the right carotid bifurcation and proximal right internal carotid artery. No significant stenosis. 2. Short segment severe stenosis involving the proximal left internal carotid artery just beyond calc ified plaque at the left carotid bifurcation. High grade stenosis based upon NASCET criteria. 3. Pulmonary artery hypertension is suspected given the enlarged central pulmonary artery. 4. Abnormal fungating soft tissue mass in the posterior right nasopharynx. Direct visualization is re commended CODE T Transcribed Date/Time: 02/21/2019 3:22 PM
== END 2019-02-20 15:44 | DRG 65 ==
LOC: ERS 15:45 → ERHOLD 20:56 → OBSVTOIN 02-18 03:07 → 2SE 02-18 15:27
PROVIDERS: ADMIT Family Medicine; ATTEND Family Medicine
PROC: B3251ZZ Computerized Tomography (CT Scan) of Bilateral Common Carotid Arteries using Low Osmolar Contrast (ICD-10-PCS; principal; 2019-02-19)
PROC: B32G1ZZ Computerized Tomography (CT Scan) of Bilateral Vertebral Arteries using Low Osmolar Contrast (ICD-10-PCS; 2019-02-19)
PROC: B32R1ZZ Computerized Tomography (CT Scan) of Intracranial Arteries using Low Osmolar Contrast (ICD-10-PCS; 2019-02-19)
PROC: B3281ZZ Computerized Tomography (CT Scan) of Bilateral Internal Carotid Arteries using Low Osmolar Contrast (ICD-10-PCS; 2019-02-19)
DX: I63.81 Other cerebral infarction due to occlusion or stenosis of small artery (principal); E87.1 Hypo-osmolality and hyponatremia; G20 Parkinson's disease; E78.00 Pure hypercholesterolemia, unspecified; I25.10 Atherosclerotic heart disease of native coronary artery without angina pectoris; Z96.641 Presence of right artificial hip joint; Z79.02 Long term (current) use of antithrombotics/antiplatelets; Z79.82 Long term (current) use of aspirin; Z79.899 Other long term (current) drug therapy; Z95.5 Presence of coronary angioplasty implant and graft
CPT/HCPCS: 36415; 51701; 70450; 70496; 70498; 70551; 71045; 71275; 80048; 80053; 80061; 81003; 83735; 83880; 83930; 83935; 84300; 84443; 84484; 85025; 93005; 93306; 93880; 96360; A4353